=== PATIENT | female | born 1990 | race Caucasian/White ===

== ENCOUNTER 2022-12-05 20:04 | Emergency (ER) | payer OTHER ==
[2022-12-05 20:24] VITALS: PULSE 99; RESP 16; TEMP 98
[2022-12-05] MEDS ORDERED: ACETAMINOPHEN TAB 500 MG TAB PO STA (20:48)
[2022-12-05] MEDS ORDERED: ONDANSETRON ODT 4 MG TAB PO STA (20:48)
--- NOTE | 2022-12-05 21:04 | ED ---
Skin/Abscess/FB HPI - General Chief complaint: Skin/Abscess/Foreign Body Stated complaint: Cellulitis, 4 months Time Seen by Provider: 12/05/22 20:40 Source: patient Mode of arrival: ambulatory Limitations: no limitations - History of Present Illness Initial comments: Patient is a 32-year-old female currently 18 weeks presenting with chief complaint of possible cellulitis to the upper back. Patient states that 4 days ago she scratched her back and thought that she had a pimple on the upper back. She states that the pain is progressively worsened, today she felt feverish and nauseous and decided to report for evaluation. She states that it feels like the swelling is increasing however she does not know what the area looks like. No abdominal pain or vaginal bleeding. Patient did not take her temperature at home. No chest pain or difficulty breathing. - Related Data Home Medications Medication Instructions Recorded Confirmed DULoxetine HCL [Cymbalta] 30 mg PO DAILY 12/05/22 12/05/22 Levocetirizine Dihydrochloride 5 mg PO DAILY 12/05/22 12/05/22 [Xyzal] Metoclopramide [Reglan] 10 mg PO TID 12/05/22 12/05/22 NIFEdipine [Adalat CC] 30 mg PO HS 12/05/22 12/05/22 Ondansetron Odt [Zofran Odt] 8 mg PO Q8HR PRN 12/05/22 12/05/22 Xfx-Enhe-Viehi Acid 1 cap PO DAILY 12/05/22 12/05/22 [-U Capsule (formulary)] Previous Rx's Medication Instructions Recorded Sulfamethox-Tmp 800-160Mg [Bactrim 1 tab PO Q12HR 7 Days #14 tab 12/05/22 DS 800-160 mg] Allergies Allergy/AdvReac Type Severity Reaction Status Date / Time methocarbamol [From Robaxin] Allergy Rash/Hives/ Verified 12/05/22 21:21 SOB phentermine [From Adipex-P] Allergy Rash/Hives/ Verified 12/05/22 21:21 SOB Review of Systems ROS Statement: Those systems with pertinent positive or pertinent negative responses have been documented in the HPI. ROS Other: All systems not noted in ROS Statement are negative. Past Medical History Additional Past Medical History / Comment(s): anxiety, pcos, Past Surgical History: Adenoidectomy, Section, Cholecystectomy, Tonsillectomy Smoking Status: Never smoker Past Alcohol Use History: None Reported Past Drug Use History: None Reported General Exam Limitations: no limitations General appearance: alert, in no apparent distress Head exam: Present: atraumatic, normocephalic, normal inspection Eye exam: Present: normal appearance Neck exam: Present: normal inspection, full ROM Respiratory exam: Present: normal lung sounds bilaterally. Absent: respiratory distress, wheezes, rales, rhonchi, stridor Cardiovascular Exam: Present: regular rate, normal rhythm, normal heart sounds. Absent: systolic murmur, diastolic murmur, rubs, gallop, clicks Neurological exam: Present: alert, oriented X3, CN II-XII intact Psychiatric exam: Present: normal affect, normal mood Expanded Type of lesion: Present: abscess (Erythema and induration with a small white head noted on the upper back) Course Vital Signs 12/05/22 12/05/22 20:18 22:01 Temperature 98.0 F Pulse Rate 99 Respiratory 16 Rate Blood Pressure 156/95 112/87 O2 Sat by Pulse 98 Oximetry - Reevaluation(s) Reevaluation #1: I allowed the patient to stick with warm compress on to help with expression of the abscess, when I entered the room the patient was complaining that she was beginning to have abdominal pain accompanied by nausea, which she believes is from the pain of her abscess. Appropriate labs and ultrasound were ordered. 12/05/22 21:43 Procedures - Incision & Drainage Consent Obtained: verbal consent Site: back Size (cm): 4 Needle Aspiration Performed?: Yes I&D Drainage Obtained: Pus, Blood Culture Obtained?: Yes Complications: pain Patient Tolerated Procedure: no complications Medical Decision Making - Medical Decision Making Was pt. sent in by a medical professional or institution (, PA, CHIEF EXECUTIVE, urgent care, hospital, or fci...) When possible be specific @ -No Did you speak to anyone other than the patient for history (EMS, parent, family, police, friend...)? What history was obtained from this source @ -No Did you review nursing and triage notes (agree or disagree)? Why? @ -I reviewed and agree with nursing and triage notes Were old charts reviewed (outside hosp., previous admission, EMS record, old EKG, old radiological studies, urgent care reports/EKG's, fci records)? Report findings @ -No old charts were reviewed Differential Diagnosis (chest pain, altered mental status, abdominal pain women, abdominal pain men, vaginal bleeding, weakness, fever, dyspnea, syncope, headache, dizziness, GI bleed, back pain, seizure, CVA, palpatations, mental health, musculoskeletal)? @ -For initial includes abscess, cellulitis, ALLERGIC reaction, this is not an all inclusive list EKG interpreted by me (3pts min.). @ -As above X-rays interpreted by me (1pt min.). @ -None done CT interpreted by me (1pt min.). @ -None done U/S interpreted by me (1pt. min.). @ -Ultrasound states that the cervix is closed and measures 3.3 cm. The ultrasound gestational age of 17 weeks and 5 days. No complicating process seen. What testing was considered but not performed or refused? (CT, X-rays, U/S, labs)? Why? @ -None What meds were considered but not given or refused? Why? @ -None Did you discuss the management of the patient with other professionals (professionals i.e. , PA, CHIEF EXECUTIVE, lab, RT, psych nurse, social sciences department chair, time study technician, teacher, chief strategy officer, case packer)? Give summary @ -No Was smoking cessation discussed for >3mins.? @ -No Was critical care preformed (if so, how long)? @ -No Were there social determinants of health that impacted care today? How? (Homelessness, low income, unemployed, alcoholism, drug addiction, transportation, low edu. Level, literacy, decrease access to med. care, intermediate, rehab)? @ -No Was there de-escalation of care discussed even if they declined (Discuss DNR or withdrawal of care, Hospice)? DNR status @ -No What co-morbidities impacted this encounter? (DM, HTN, Smoking, COPD, CAD, Cancer, CVA, ARF, Chemo, Hep., AIDS, mental health diagnosis, sleep apnea, morbid obesity)? @ - Was patient admitted / discharged? Hospital course, mention meds given and r oute, prescriptions, significant lab abnormalities, going to OR and other pertinent info. @ -Patient was discharged home. Patient is a 32-year-old female currently 18 weeks presenting with chief complaint of painful lump to the upper back that has been present for the last 4 days. No abdominal pain or vaginal bleeding. On examination there is an abscess, which is largely indurated and erythematous. There is a small pustule in the center. Warm compress was applied and left on to help with expression of the abscess. When I returned to express abscess, patient states that she began experiencing abdominal pain. She believes it is just due to the extreme pain of the abscess. Labs and ultrasound were ordered. The needle was used to incise the abscess, I was able to express a small amount of drainage before patient was unable to tolerate the procedure any further. Wound culture was sent. Lab work shows WBC 17. Ultrasound shows no complicating process. Patient is able to tolerate oral intake and is resting comfortably. Patient will be started on Bactrim and is educated on supportive treatment at home. Advised to use warm compresses and continually try to further express fluid from the abscess. Take Tylenol as needed. Follow-up with PCP and OBGYN. Report back to ER with any new or worsening symptoms. Discussed return parameters and answered all questions. Patient conveyed verbal understanding and agreed to the plan. I discussed this case in detail with my attending Dr. Estes Undiagnosed new problem with uncertain prognosis? @ -No Drug Therapy requiring intensive monitoring for toxicity (Heparin, Nitro, Insulin, Cardizem)? @ -No Were any procedures done? @ -Incision and drainage Diagnosis/symptom? @ -Abscess Acute, or Chronic, or Acute on Chronic? @ -Acute Uncomplicated (without systemic symptoms) or Complicated (systemic symptoms)? @ -Uncomplicated Side effects of treatment? @ -No Exacerbation, Progression, or Severe Exacerbation? @ -No Poses a threat to life or bodily function? How? (Chest pain, [place], [place], pneumonia, PE, COPD, DKA, ARF, appy, cholecystitis, CVA, Diverticulitis, Homicidal, Suicidal, threat to staff... and all critical care pts) @ -No - Lab Data Result diagrams: 12/05/22 22:18 12/05/22 22:18 Lab Results 12/05/22 12/05/22 12/05/22 Range/Units 22:18 22:18 22:18 WBC 17.0 H (3.8-10.6) k/uL RBC 4.32 (3.80-5.40) m/uL Hgb 12.0 (11.4-16.0) gm/dL Hct 36.0 (34.0-46.0) % MCV 83.5 (80.0-100.0) fL MCH 27.8 (25.0-35.0) pg MCHC 33.3 (31.0-37.0) g/dL RDW 14.0 (11.5-15.5) % Plt Count 336 (150-450) k/uL MPV 6.9 Neutrophils % 80 % Lymphocytes % 13 % Monocytes % 5 % Eosinophils % 1 % Basophils % 0 % Neutrophils # 13.6 H (1.3-7.7) k/uL Lymphocytes # 2.2 (1.0-4.8) k/uL Monocytes # 0.9 (0-1.0) k/uL Eosinophils # 0.1 (0-0.7) k/uL Basophils # 0.0 (0-0.2) k/uL PT 9.3 (9.0-12.0) sec INR 0.9 (<1.2) APTT 22.2 (22.0-30.0) sec Sodium 133 L (137-145) mmol/L Potassium 4.5 (3.5-5.1) mmol/L Chloride 102 (98-107) mmol/L Carbon Dioxide 21 L (22-30) mmol/L Anion Gap 10 mmol/L BUN 13 (7-17) mg/dL Creatinine 0.49 L (0.52-1.04) mg/dL Est GFR (CKD-EPI)AfAm >90 (>60 ml/min/1.73 sqM) Est GFR (CKD-EPI)NonAf >90 (>60 ml/min/1.73 sqM) Glucose 101 H (74-99) mg/dL Calcium 9.7 (8.4-10.2) mg/dL Total Bilirubin 0.2 (0.2-1.3) mg/dL AST 36 (14-36) U/L ALT 63 H (4-34) U/L Alkaline Phosphatase 79 (38-126) U/L Total Protein 7.1 (6.3-8.2) g/dL Albumin 4.1 (3.5-5.0) g/dL Disposition Clinical Impression: Abscess Disposition: HOME SELF-CARE Condition: Fair Instructions (If sedation given, give patient instructions): Abscess Incision and Drainage (ED), Abscess (ED) Additional Instructions: Follow-up with PCP and MEDICAL PRACTICE ADMINISTRATOR. Report back to ER with any new or worsening symptoms. Take medication as prescribed. Continue applying warm compresses and expressing drainage from the site Prescriptions: Sulfamethox-Tmp 800-160Mg [Bactrim DS 800-160 mg] 1 tab PO Q12HR 7 Days #14 tab Is patient prescribed a controlled substance at d/c from ED?: No Referrals: Malik Purdy MD [Primary Care Provider] - 1-2 days Time of Disposition: 23:52
[2022-12-05] MEDS ORDERED: SODIUM CHLORIDE 0.9% 1,000 ML IV ONE (21:42)
[2022-12-05 22:03] VITALS: BP 112/87
[2022-12-05] MEDS ORDERED: METOCLOPRAMIDE 5 MG/ML 2 ML VIAL IVP STA (22:10)
[2022-12-05 22:42] LABS: Basophils % (A) 0 %; Eosinophils # (A) 0.1 k/uL (0-0.7); Eosinophils % (A) 1 %; Lymphocytes # (A) 2.2 k/uL (1.0-4.8); Lymphocytes % (A) 13 %; MCH 27.8 pg (25.0-35.0); MCHC 33.3 g/dL (31.0-37.0); MCV 83.5 fL (80.0-100.0); Mean Platelet Volume 6.9; Monocytes # (A) 0.9 k/uL (0-1.0); Monocytes % (A) 5 %; Neutrophils # (A) 13.6 k/uL (1.3-7.7); Neutrophils % (A) 80 %; Platelet Count 336 k/uL (150-450); RBC 4.32 m/uL (3.80-5.40)
[2022-12-05 22:48] LABS: ALT 63 U/L (4-34); AST 36 U/L (14-36); African American GFR (CKD) >90 (>60 ml/min/1.73 sqM); Albumin 4.1 g/dL (3.5-5.0); Alkaline Phosphatase 79 U/L (38-126); Anion Gap 10 mmol/L; Blood Urea Nitrogen 13 mg/dL (7-17); Calcium 9.7 mg/dL (8.4-10.2); Carbon Dioxide 21 mmol/L (22-30); Chloride 102 mmol/L (98-107); Glucose 101 mg/dL (74-99); Non-African American GFR(CKD) >90 (>60 ml/min/1.73 sqM); Potassium 4.5 mmol/L (3.5-5.1); Sodium 133 mmol/L (137-145); Total Bilirubin 0.2 mg/dL (0.2-1.3); Total Protein 7.1 g/dL (6.3-8.2)
[2022-12-05 22:52] LABS: INR 0.9 (<1.2); Partial Thromboplastin Time 22.2 sec (22.0-30.0); Prothrombin Time 9.3 sec (9.0-12.0)
--- NOTE | 2022-12-05 23:37 | US ---
EXAMINATION TYPE: US OB >= 14 wk fetus DATE OF EXAM: 12/05/2022 COMPARISON: None CLINICAL HISTORY: painMidline abd pain today TECHNIQUE: Transabdominal (TA) GESTATIONAL AGE / DATING Physician Established: (17 weeks/5 days) EDC: 05/10/23 Dates by First Scan: No previous this is first scan Dates by Current Scan: (17 weeks/5 days) EDC: 05/10/23 Beta HCG (if available): Not available at this time SURVEY IUP: Single PLACENTA: Anterior PREVIA: No Previa MARY: 16.1 cm Normal CERVICAL LENGTH (transabdominal: norm > 3.0cm): 3.4 cm BIOMETRY PRESENTATION: Vertex LIE: Longitudinal BPD: 3.89 cm 17 weeks / 6 days HC: 14.9 cm 18 weeks / 0 days AC: 12.2 cm 17 weeks / 6 days FL: 2.51 cm 17 weeks / 4 days ESTIMATED WEIGHT IN GRAMS: 208.8 grams ESTIMATED WEIGHT IN LBS/OZ: 0 lbs. 7 oz. WEIGHT PERCENTAGE BASED ON ESTABLISHED DATES: 48% HC/AC: 1.2 Normal FL/AC: 20.6 Normal HEART RATE: 149 bpm RHYTHM: Normal MATERNAL WALL MEASUREMENT: 5.1 cm from skin to anterior uterine wall (if exam limited due to body hab itus). IMPRESSION: The cervix is closed and measures 3.3 cm. The ultrasound gestational age is 17 weeks and 5 days. The ROBINSON is 05/10/2023. No complicating process seen.
[2022-12-05] MEDS ORDERED: SULFAMETHOX-TMP 800-160MG 1 EACH TAB PO STA (23:52)
== END 2022-12-06 00:28 | disposition home or self-care (01) ==
LOC: EC 20:04
DX: O99.712 Diseases of the skin and subcutaneous tissue complicating pregnancy, second trimester (principal); L02.212 Cutaneous abscess of back [any part, except buttock and flank]; O99.342 Other mental disorders complicating pregnancy, second trimester; F41.9 Anxiety disorder, unspecified; Z79.899 Other long term (current) drug therapy; Z3A.17 17 weeks gestation of pregnancy; Z88.8 Allergy status to other drugs, medicaments and biological substances
CPT/HCPCS: 10060 ×2; 99284 ×2; 96374 ×2; 96361 ×2; 36415; 80053; 85025; 85610; 85730; 87070; 87205; 87077; 87186; 76805; J2765

== ENCOUNTER 2022-12-16 19:28 | Emergency (ER) | payer OTHER ==
[2022-12-16 20:10] VITALS: RESP 18
--- NOTE | 2022-12-16 21:03 | ED ---
General Adult HPI - General Chief complaint: Recheck/Abnormal Lab/Rx Stated complaint: Complications with midline IV Time Seen by Provider: 12/16/22 20:59 Source: patient, RN notes reviewed Mode of arrival: ambulatory Limitations: no limitations - History of Present Illness Initial comments: Patient is a 32-year-old female at 19 weeks who presents to the emergency department for complications catheter. Patient has midline for cellulitis with MRSA history. Patient states today her abx took a lot longer than usual. She reports swelling, redness, and pain in her arm. She denies injury. She denies history of DVT and PE. Denies hormone replacement, long car rides, airplane travel, surgical interventions, known cancers, family history of clotting, tobacco use. Patient is on heparin and baby aspirin. - Related Data Home Medications Medication Instructions Recorded Confirmed DULoxetine HCL [Cymbalta] 30 mg PO DAILY 12/05/22 12/05/22 Levocetirizine Dihydrochloride 5 mg PO DAILY 12/05/22 12/05/22 [Xyzal] Metoclopramide [Reglan] 10 mg PO TID 12/05/22 12/05/22 NIFEdipine [Adalat CC] 30 mg PO HS 12/05/22 12/05/22 Ondansetron Odt [Zofran Odt] 8 mg PO Q8HR PRN 12/05/22 12/05/22 Szg-Qjrt-[id number] Acid 1 cap PO DAILY 12/05/22 12/05/22 [-U Capsule (formulary)] Previous Rx's Medication Instructions Recorded Sulfamethox-Tmp 800-160Mg [Bactrim 1 tab PO Q12HR 7 Days #14 tab 12/05/22 DS 800-160 mg] Allergies Allergy/AdvReac Type Severity Reaction Status Date / Time methocarbamol [From Robaxin] Allergy Rash/Hives/ Verified 12/05/22 21:21 SOB phentermine [From Adipex-P] Allergy Rash/Hives/ Verified 12/05/22 21:21 SOB Review of Systems ROS Statement: Those systems with pertinent positive or pertinent negative responses have been documented in the HPI. ROS Other: All systems not noted in ROS Statement are negative. Past Medical History Additional Past Medical History / Comment(s): anxiety, pcos, History of Any Multi-Drug Resistant Organisms: MRSA Date of last positivie culture/infection: 3/20/23 MDRO Source:: upper back, mid left back, r leg, l leg Past Surgical History: Adenoidectomy, Section, Cholecystectomy, Tonsillectomy Past Psychological History: Anxiety Smoking Status: Never smoker Past Alcohol Use History: None Reported Past Drug Use History: None Reported General Exam - General Exam Comments Initial Comments: Visual Physical Exam Vital signs reviewed General: Well-appearing, nontoxic, no acute distress. Head: Normocephalic, atraumatic Eyes: PERRLA, EOMI ENT: Airway patent Chest: Nonlabored breathing Skin: No visual rash, normal skin tone Neuro: Alert and oriented 3 Musculoskeletal: No gross abnormalities Limitations: no limitations Course Vital Signs 12/16/22 12/17/22 20:06 01:21 Temperature 98.3 F 98.1 F Pulse Rate 78 89 Respiratory 18 18 Rate Blood Pressure 148/77 144/94 O2 Sat by Pulse 98 92 L Oximetry Disposition Clinical Impression: Superficial thrombophlebitis Disposition: Left Against Medical Advice Referrals: Ezequiel Purdy MD [Primary Care Provider] - 1-2 days
--- NOTE | 2022-12-16 22:08 | US ---
EXAMINATION TYPE: US venous doppler duplex UE RT DATE OF EXAM: 12/16/2022 COMPARISON: NONE CLINICAL HISTORY: pain in arm, has midline for cellulitis. pain in right arm after infusion. Midline in arm since . Takes heparin after infusions (not today) and baby aspirin. No hx of DVT SIDE PERFORMED: Right Right Arm: Limited due to pt not being able to position arm correctly. There appears to be echoes in vein with midline. I am not sure if it is the basilic or brachial vein. All other veins appear wnl, IMPRESSION: Superficial thrombophlebitis of the suspected right basilic vein. No evidence for deep vein thrombus of the right upper chimney.
[2022-12-17 01:31] VITALS: BP 144/94; PULSE 89; TEMP 98.1
== END 2022-12-17 02:40 | disposition left against medical advice (07) ==
LOC: EC 19:28
DX: O22.22 Superficial thrombophlebitis in pregnancy, second trimester (principal); I80.9 Phlebitis and thrombophlebitis of unspecified site; O99.342 Other mental disorders complicating pregnancy, second trimester; F41.9 Anxiety disorder, unspecified; Z79.899 Other long term (current) drug therapy; Z53.29 Procedure and treatment not carried out because of patient's decision for other reasons; Z88.8 Allergy status to other drugs, medicaments and biological substances; Z3A.19 19 weeks gestation of pregnancy
CPT/HCPCS: 99283